=== PATIENT | male | born 1960 | race Caucasian/White ===

== ENCOUNTER 2023-10-21 11:02 | Outpatient (REF) | payer OTHER, SELFPAY ==
[2023-10-21 15:20] LABS: Prostate Specific Antigen 1.83 ng/mL (<0.05-4.0)
== END 2023-10-21 11:03 | disposition home or self-care (01) ==
LOC: HO.CHCLDS 11:02
PROVIDERS: Visit Provider Registered Nurse
DX: Z00.00 Encounter for general adult medical examination without abnormal findings (principal); Z12.5 Encounter for screening for malignant neoplasm of prostate
CPT/HCPCS: 36415; 84153

== ENCOUNTER 2023-12-29 08:56 | Outpatient (AMB) | payer MEDICARE, SELFPAY ==
--- NOTE | 2023-12-29 08:59 | A.OFFVIS_ITS ---
Intake Visit Reasons: erectile dysfunction Intake Note: Patient is present for Erectile Dysfunction Urology Medication:none Antibiotic Allergy:none Blood Thinner:none Logistics Operations Director Required: Yes Logistics Operations Director Name: [id number] Information Interpreted: non-clinical & clinical Allergies No Known Allergies [No Known Allergies*] Allergy (Verified 12/29/23 09:01) Medication List - Last Reconciled 12/29/23 by Elder Cameron MD tadalafil (Cialis) 5 mg PO DAILY HPI Comments Details: Emiliano is a 63-year-old male who is here for a new patient evaluation with complaints of erectile dysfunction. retail customer service representative utilized. He states that he has noted changes with erections for about 5 years. He states that he was on medication for diabetes for about a year and a half however his diabetic medications were discontinued as his age A1c went down as he has changed his diet. I have discussed he is of Cialis 5 mg daily. We will check lab work to check testosterone level, estradiol, fasting glucose. He denies voiding issues. Labs: PSA--10/21/23---183 ng/mL [facility] Medical History Healthcare maintenance Lumbar degenerative disc disease Type 2 diabetes mellitus Obesity (BMI 30-39.9) Essential hypertension Chronic thoracic back pain Acquired hypothyroidism Hypothyroidism Hypertension HLD (hyperlipidemia) Edema of lower extremity BPH (benign prostatic hyperplasia) Surgical History History of colonoscopy Social History Alcohol intake: current Patient Tobacco Use Status: Never used Tobacco Use of substances other than those prescribed or required for medical reasons: No Review of Systems Const All systems reviewed & are unremarkable except as noted in HPI and below Reports no additional complaints Eyes Reports no additional complaints ENT Reports no additional complaints Card Reports no additional complaints Resp Reports no additional complaints GI Reports no additional complaints Reports as per HPI Musc Reports no additional complaints Skin/Breast Reports system reviewed and no additional complaints, except as documented Neuro Reports no additional complaints Psych Reports no additional complaints Endo Reports no additional complaints John/Lymph Reports no additional complaints Aller/Immun Reports no additional complaints Physical Exam Const General: healthy appearing, no acute distress and well developed Nutritional Appearance: overweight Orientation/consciousness: patient oriented x3 HEENT Head: Yes normocephalic and Yes atraumatic Eyes Conjunctivae: conjunctivae normal Neck Neck: Yes normal visual inspection Chest Chest palpation & inspection: normal inspection of the chest Resp Effort & Inspection: normal respiratory effort Cardio Rate: regular rate GI Inspection: Yes normal to inspection Neuro General: patient oriented x3 Psych Appearance: grossly normal Affect: normal affect Results AMB Urinalysis, Automated UA Leukoctes 0 Ryne/uL Last Edit by FELIZ Jurado on 12/29/23 09:11 UA Nitrite Negative Last Edit by Tyron Acuña CCM on 12/29/23 09:11 UA Urobilinogen 0.2 mg/dL Last Edit by FELIZ Jurado on 12/29/23 09:1 1 UA Protein 100 mg/dL Last Edit by Tyron Acuña CCM on 12/29/23 09:11 UA pH 6.0 Last Edit by Tyron Acuña CCM on 12/29/23 09:11 UA Blood 0 Emir/uL Last Edit by Tyron Acuña CCM on 12/29/23 09:11 UA Specific [place] 1.025 Last Edit by Tyron Acuña CCM on 12/29/23 09: 11 UA Ketone Negative Last Edit by FELIZ Jurado on 12/29/23 09:11 UA Bilirubin 1 mg/dL Last Edit by Tyron Acuña CCM on 12/29/23 09:11 UA Glucose 0 mg/dL Last Edit by Tyron Acuña [facility] on 12/29/23 09:11 Results Reviewed Results Reviewed: Laboratory Last Values Urine pH (Auto) 6.0 12/29/23 09:11 Specific [place] (Auto) 1.025 12/29/23 09:11 Urine Protein (Auto) 100 mg/dL 12/29/23 09:11 Glucose (UA)(Auto) 0 mg/dL 12/29/23 09:11 Urine Ketones (Auto) Negative 12/29/23 09:11 Urine Blood (Auto) 0 Emir/uL 12/29/23 09:11 Urine Nitrite (Auto) Negative 12/29/23 09:11 Urine Bilirubin (Auto) 1 mg/dL 12/29/23 09:11 Urine Urobilinogen (Auto) 0.2 mg/dL 12/29/23 09:11 Leukocyte Esterase (Auto) 0 Rnye/uL 12/29/23 09:11 Assessment & Plan Assessment & Plan (1) Erectile disorder: Code(s): N52.9 - Male erectile dysfunction, unspecified Category: Medical (2) Diabetes: Code(s): E11.9 - Type 2 diabetes mellitus without complications Category: Medical Plan He was on medication for diabetes for about a year and a half however his diabetic medications were discontinued as his age A1c went down as he has changed his diet. I have discussed he is of Cialis 5 mg daily. We will check lab work to check testosterone level, estradiol, fasting glucose. He denies voiding issues. Labs: PSA--10/21/23---183 ng/mL Orders: Orders AMB Urinalysis Automated Today Z13.9 - Encounter for screening, unspecified Hemoglobin A1c Today N52.9 - Male erectile dysfunction, unspecified Estradiol Ultra Sensitive Today N52.9 - Male erectile dysfunction, unspecified Testosterone, Free/Total Today N52.9 - Male erectile dysfunction, unspecified Glucose Fasting Today N52.9 - Male erectile dysfunction, unspecified Medications: New tadalafil (Cialis) [id number] [facility] [id number] Member [id number] 5 mg PO DAILY 30 tabs 5RF Patient Instructions: The patient had an opportunity to ask questions regarding treatment plan. The patient expressed understanding and agreement with the above treatment plan. The patient is aware they should contact our office by phone for worsening of their current condition or the appearance of new symptoms. Compliance is encouraged with any medications and followup testing that is ordered. It is a privilege to be allowed the opportunity to participate in the urologic care of your patient. If you have any questions or concerns regarding treatment for the above conditions please do not hesitate to contact me. The office telephone contact is [phone]. This note is constructed in part using voice recognition software. While every effort has been made to ensure accuracy supervisor car and yard errors may have been included. Yours sincerely, Elder Cameron MD Coding Level of Care Code New Pt Level 4 (97309) Diagnoses Erectile disorder N52.9 Diabetes E11.9
== END 2023-12-29 10:01 | disposition home or self-care (01) ==
LOC: HO.HUSH 08:56
PROVIDERS: PCP Internal Medicine; Visit Provider Urology
DX: N52.9 Male erectile dysfunction, unspecified (principal); E11.9 Type 2 diabetes mellitus without complications; Z13.9 Encounter for screening, unspecified
CPT/HCPCS: 99204

== ENCOUNTER → 2023-12-29 08:56 | Outpatient (BNVA) | payer MEDICARE, SELFPAY | PROVIDERS: PCP Internal Medicine; Visit Provider Urology | DX: N52.9 Male erectile dysfunction, unspecified (principal); E11.9 Type 2 diabetes mellitus without complications | CPT/HCPCS: 81003; 99202 ==

== ENCOUNTER 2024-05-18 10:11 | Outpatient (REF) | payer MEDICARE, SELFPAY ==
[2024-05-18 14:02] LABS: MANUAL DIFF FLAG NO
[2024-05-18 14:07] LABS: Basophils Absolute Auto 0.1 X10*3/uL (0.0-0.2); Basophils Percent Auto 0.9 % (0-2); Eosinophils Absolute Auto 0.4 X10*3/uL (0.0-0.4); Eosinophils Percent Auto 4.9 % (0-4); Hematocrit 51.4 % (42.0-52.0); Hemoglobin 17.2 g/dl (14.0-18.0); Imm Gran Abs Auto 0.05 X10*3/uL (0.00-0.03); Imm Gran Pct Auto 0.6 % (0.0-0.4); Lymphocytes Absolute Auto 2.1 X10*3/uL (1.2-4.9); Lymphocytes Percent Auto 27.4 % (20-40); Mean Corpuscular HGB Conc 33.5 g/dl (31.0-36.0); Mean Corpuscular Hemoglobin 29.8 pg (27.0-33.0); Mean Corpuscular Volume 88.9 fL (80.0-98.0); Mean Platelet Volume 9.7 fL (9.4-12.4); Monocytes Absolute Auto 0.7 X10*3/uL (0.1-1.2); Neutrophils Absolute Auto 4.4 x10*3/uL (2.0-8.3); Neutrophils Percent Auto 57.2 % (45-73); Platelet Count 307 X10*3/uL (160-400); Red Blood Count 5.78 X10*6/uL (4.60-5.80); Red Cell Distribution Width 13.2 % (11.0-16.0); White Blood Count 7.8 X10*3/uL (4.8-10.8)
[2024-05-18 14:27] LABS: Creatinine Urine 171.67 mg/dL; Microalbum/Creatinine Ratio Ur 284.8 ug/mg cr (<30)
[2024-05-18 14:36] LABS: Alanine Aminotransferase 80 U/L (0-40); Albumin Level 4.4 g/dL (3.5-5.0); Alkaline Phosphatase 52 U/L (39-117); Anion Gap 9 (12-20); Aspartate Amino Transferase 53 U/L (5-37); Bilirubin Total 0.7 mg/dL (0.0-1.0); Blood Urea Nitrogen 25 mg/dL (9-16); Calcium 10.1 mg/dL (8.4-10.2); Carbon Dioxide 27 mmol/L (22-29); Chloride 107 mmol/L (96-108); Cholesterol 202 mg/dL (<200); Estimated Glomerular Filt Rate > 60; Glucose Random 95 mg/dL (60-115); HDL Cholesterol 37 mg/dL (>40); LDL Cholesterol Calculated 131 mg/dL (<100); Potassium 4.1 mmol/L (3.3-5.1); Sodium 139 mmol/L (135-145); Triglycerides 171 mg/dL (<150)
[2024-05-18 14:45] LABS: TSH reflex Free T4 6.45 uIU/mL (0.32-4.0)
[2024-05-18 15:28] LABS: Free T4 (Free Thyroxine) 0.79 ng/dL (0.71-1.85)
== END 2024-05-18 10:12 | disposition home or self-care (01) ==
LOC: HO.CHCLDS 10:11
PROVIDERS: Visit Provider Registered Nurse
DX: I10 Essential (primary) hypertension (principal); R39.9 Unspecified symptoms and signs involving the genitourinary system
CPT/HCPCS: 36415; 80053; 80061; 82043; 82570; 84439; 84443; 85025; 87086